=== PATIENT | female | born 1955 | race Caucasian/White ===

== ENCOUNTER 2020-10-24 12:50 | Inpatient (IN) | payer MEDICARE, BC ==
[~2020-10-24] VITALS: Ht 177.8 cm; Wt 113.5 kg
[2020-10-24] MEDS ORDERED: PREDNISONE10 MG PO (13:08)
[2020-10-24] MEDS ORDERED: ZITHROMAX 250M250 MG PO (13:09)
[2020-10-24] MEDS ORDERED: KLONOPIN 0.5MG0.5 MG PO (13:10)
[2020-10-24] MEDS ORDERED: SYNTHROID0.112 MG/T PO (13:10)
[2020-10-24] MEDS ORDERED: TOPROL XL 25MG25 MG PO (13:10)
[2020-10-24 13:32] LABS: BASO % 0.3 % (0.0-2.0); GRAN # 6.6 (1.4-6.5); GRAN % 83.5 % (42.2-75.2); HEMATOCRIT 43.6 % (37.0-47.0); HEMOGLOBIN 14.1 g/dl (12.5-16.0); LYMPH # 0.8 (1.2-3.4); LYMPH % 10.6 % (20.0-51.0); MEAN CELL VOLUME 85 fl (80.0-100.0); MEAN CORPUSCULAR HEMOGLOBIN 28 pg (27.0-31.0); MEAN CORPUSCULAR HGB CONC 32 g/dl (33.0-37.0); MEAN PLATELET VOLUME 10.9 fl (7.4-10.4); MONO # 0.4 (0.1-0.6); MONO % 4.6 % (1.7-9.3); PLATELET COUNT 309 K/mm3 (130-400); RED BLOOD COUNT 5.12 M/mm3 (4.10-5.30); REDCELL DISTRIBUTION WIDTH-CV 13.6 % (11.5-14.5)
[2020-10-24 13:41] LABS: BILIRUBIN,TOTAL 0.8 mg/dL (0.0-1.0); CALCIUM 8.9 mg/dL (8.4-10.2); CREATININE, serum 0.77 (0.52-1.25); POTASSIUM 4.2 mmol/L (3.4-5.0); TOTAL PROTEIN 7.7 gm/dL (6.4-8.2)
[2020-10-24 13:45] LABS: COLLECTION METHOD CLEAN CATCH
[2020-10-24 13:53] LABS: MUCOUS Present /lpf; PH 6 (5-8); SQUAMOUS EPITHELIAL 0-2 /hpf; URINE APPEARANCE Hazy; URINE BACTERIA Many /hpf; URINE BILIRUBIN Negative (NEGATIVE); URINE BLOOD Negative (NEGATIVE); URINE COLOR Yellow; URINE GLUCOSE Negative (NEGATIVE); URINE KETONE Negative (NEGATIVE); URINE LEUKOCYTE ESTERASE Trace (NEGATIVE); URINE NITRATE Positive (NEGATIVE); URINE PROTEIN(semi-quant) Negative (NEGATIVE); URINE RBC 0-2 /hpf; URINE UROBILINOGEN Negative (NEGATIVE)
[2020-10-24 23:11] VITALS: BP 135/76; PULSE 60; TEMP 97.7
[2020-10-25 04:58] VITALS: BP 149/79; PULSE 51; TEMP 97.6
[2020-10-25 07:54] LABS: ALBUMIN 3.5 gm/dL (3.5-5.0); BILIRUBIN,TOTAL 0.4 mg/dL (0.0-1.0); CALCIUM 8.5 mg/dL (8.4-10.2); CREATININE, serum 0.68 (0.52-1.25); MAGNESIUM 1.9 mg/dL (1.6-2.3); POTASSIUM 4.2 mmol/L (3.4-5.0); TOTAL PROTEIN 6.7 gm/dL (6.4-8.2)
[2020-10-25 08:04] LABS: HEMATOCRIT 40.7 % (37.0-47.0); HEMOGLOBIN 13.2 g/dl (12.5-16.0); MEAN CELL VOLUME 87 fl (80.0-100.0); MEAN CORPUSCULAR HEMOGLOBIN 28 pg (27.0-31.0); MEAN CORPUSCULAR HGB CONC 32 g/dl (33.0-37.0); MEAN PLATELET VOLUME 11.1 fl (7.4-10.4); PLATELET COUNT 279 K/mm3 (130-400); REDCELL DISTRIBUTION WIDTH-CV 13.8 % (11.5-14.5)
[2020-10-25 08:43] VITALS: BP 158/85; PULSE 54; TEMP 97.6
[2020-10-25 09:33] LABS: BAND 7 % (0-10); LYMPHOCYTE 21 % (20.0-51.0); NEUTROPHILS 67 % (42.0-75.2)
[2020-10-25 09:34] LABS: PLATELET ESTIMATE NORMAL (NORMAL)
[2020-10-25 11:46] VITALS: BP 121/73; PULSE 53; TEMP 97.6
[2020-10-25 16:24] VITALS: BP 146/69; PULSE 57; TEMP 97.4
[2020-10-25 19:06] VITALS: BP 125/68; PULSE 63; TEMP 97.6
[2020-10-26] VITALS (8 sets, daily range): BP systolic 121–157; BP diastolic 63–84; PULSE 51–61; TEMP 97.5–98
[2020-10-27 03:15] VITALS: BP 155/84; PULSE 53; TEMP 97.6
[2020-10-27 08:38] VITALS: BP 134/84; PULSE 54; TEMP 97.7
[2020-10-27 09:10] LABS: HEMATOCRIT 43.7 % (37.0-47.0); MEAN CELL VOLUME 86 fl (80.0-100.0); MEAN CORPUSCULAR HEMOGLOBIN 28 pg (27.0-31.0); MEAN CORPUSCULAR HGB CONC 32 g/dl (33.0-37.0); MEAN PLATELET VOLUME 10.8 fl (7.4-10.4); PLATELET COUNT 340 K/mm3 (130-400); RED BLOOD COUNT 5.08 M/mm3 (4.10-5.30); REDCELL DISTRIBUTION WIDTH-CV 13.6 % (11.5-14.5)
[2020-10-27 09:24] LABS: CALCIUM 8.5 mg/dL (8.4-10.2); CREATININE, serum 0.7 (0.52-1.25); MAGNESIUM 1.9 mg/dL (1.6-2.3); POTASSIUM 4.4 mmol/L (3.4-5.0)
[2020-10-27 10:12] LABS: HYPOCHROMIA 1+; LYMPHOCYTE 24 % (20.0-51.0); NEUTROPHILS 65 % (42.0-75.2); PLATELET ESTIMATE NORMAL (NORMAL)
[2020-10-27 11:45] VITALS: BP 134/82; PULSE 59; TEMP 97.5
[2020-10-27 15:31] VITALS: BP 140/79; PULSE 61; TEMP 97.7
[2020-10-27 19:26] VITALS: BP 138/73; PULSE 54; TEMP 97.3
[2020-10-27 23:45] VITALS: BP 151/83; PULSE 55; TEMP 98
[2020-10-28 04:28] VITALS: BP 124/72; PULSE 50; TEMP 97.7
[2020-10-28 08:04] LABS: HEMATOCRIT 45.6 % (37.0-47.0); HEMOGLOBIN 14.8 g/dl (12.5-16.0); MEAN CELL VOLUME 86 fl (80.0-100.0); MEAN CORPUSCULAR HEMOGLOBIN 28 pg (27.0-31.0); MEAN CORPUSCULAR HGB CONC 33 g/dl (33.0-37.0); MEAN PLATELET VOLUME 10.8 fl (7.4-10.4); PLATELET COUNT 383 K/mm3 (130-400); RED BLOOD COUNT 5.33 M/mm3 (4.10-5.30); REDCELL DISTRIBUTION WIDTH-CV 13.7 % (11.5-14.5)
[2020-10-28 08:33] VITALS: BP 128/86; PULSE 53; TEMP 98.5
[2020-10-28 08:44] LABS: CALCIUM 8.5 mg/dL (8.4-10.2); CREATININE, serum 0.78 (0.52-1.25); POTASSIUM 4.4 mmol/L (3.4-5.0)
[2020-10-28 08:56] LABS: BAND 4 % (0-10); LYMPHOCYTE 24 % (20.0-51.0); METAMYELOCYTE 3 % (0-0); NEUTROPHILS 63 % (42.0-75.2); PLATELET ESTIMATE NORMAL (NORMAL)
[2020-10-28 12:00] VITALS: BP 117/70; PULSE 57; TEMP 97.5
[2020-10-28 16:20] VITALS: BP 119/69; PULSE 62; TEMP 97.3
[2020-10-28 20:30] VITALS: BP 136/74; PULSE 66; TEMP 98.4
[2020-10-29 00:16] VITALS: BP 144/79; PULSE 55; TEMP 97.8
[2020-10-29 04:02] VITALS: BP 141/83; PULSE 52; TEMP 98
[2020-10-29 07:53] LABS: HEMATOCRIT 47.1 % (37.0-47.0); HEMOGLOBIN 15.1 g/dl (12.5-16.0); MEAN CELL VOLUME 87 fl (80.0-100.0); MEAN CORPUSCULAR HEMOGLOBIN 28 pg (27.0-31.0); MEAN CORPUSCULAR HGB CONC 32 g/dl (33.0-37.0); MEAN PLATELET VOLUME 10.8 fl (7.4-10.4); PLATELET COUNT 357 K/mm3 (130-400); RED BLOOD COUNT 5.41 M/mm3 (4.10-5.30); REDCELL DISTRIBUTION WIDTH-CV 13.9 % (11.5-14.5)
[2020-10-29 07:59] LABS: CALCIUM 8.3 mg/dL (8.4-10.2); CREATININE, serum 0.74 (0.52-1.25); POTASSIUM 4.7 mmol/L (3.4-5.0)
[2020-10-29 08:28] VITALS: BP 141/76; PULSE 52; TEMP 97.7
[2020-10-29 08:37] LABS: BAND 2 % (0-10); LYMPHOCYTE 21 % (20.0-51.0); METAMYELOCYTE 1 % (0-0); NEUTROPHILS 66 % (42.0-75.2); PLATELET ESTIMATE NORMAL (NORMAL)
[2020-10-29] MEDS ORDERED: MONODOX100 PO (10:00)
[2020-10-29] MEDS ORDERED: RT Albuterol HFA MDI IH (10:01)
[2020-10-29] MEDS ORDERED: TOPROL XL 25MG25 MG PO (10:01)
[2020-10-29] MEDS ORDERED: DECADRON6 MG PO (10:02)
[2020-10-29] MEDS ORDERED: PROAIR HFA0.09 MG/AC IH (10:03)
[2020-10-29] MEDS ORDERED: OXYGEN (10:06)
[2020-10-29 11:32] VITALS: BP 108/64; PULSE 59; TEMP 97.9
== END 2020-10-29 14:16 | disposition home or self-care (01) | DRG 177 ==
LOC: COL.ER 12:50 → MEDICAL 14:03
PROVIDERS: Family Medicine; Student in an Organized Health Care Education/Training Program; ADMIT Internal Medicine
PROC: XW033E5 Introduction of Remdesivir Anti-infective into Peripheral Vein, Percutaneous Approach, New Technology Group 5 (ICD-10-PCS; principal; 2020-10-24)
DX: U07.1 COVID-19 (principal); J12.82 Pneumonia due to coronavirus disease 2019; J96.01 Acute respiratory failure with hypoxia; E87.2 Acidosis; N39.0 Urinary tract infection, site not specified; E03.9 Hypothyroidism, unspecified; I49.3 Ventricular premature depolarization; B96.20 Unspecified Escherichia coli [E. coli] as the cause of diseases classified elsewhere; E66.9 Obesity, unspecified; Z90.710 Acquired absence of both cervix and uterus
CPT/HCPCS: 99223-AI; 99232-AI; 99233-AI; 99239; A9284; J0696; J1650; J7050; J8540